=== PATIENT | male | born 1965 | race African-American/Black ===

== ENCOUNTER 2024-10-15 13:48 | Emergency (ER) | payer SELFPAY ==
[~2024-10-15] VITALS: Ht 185.4 cm; Wt 66.7 kg
[2024-10-15 14:33] LABS: BASO # 0.1 10*3/uL (0.0-0.1); BASO % 1.1 % (0.0-1.0); EOS # 0.5 10*3/uL (0.0-0.4); EOS % 8.8 % (1.0-4.0); MEAN CELL VOLUME 88.2 fl (80.0-94.0); MEAN CORPUSCULAR HGB 29.4 pg (27.0-31.0); MEAN PLATELET VOLUME 9.7 fl (9.6-12.3); MONO # 0.7 10*3/uL (0.1-1.0); MONO % 13.0 % (3.0-9.0); NEUT # 1.8 10*3/uL (2.3-7.9); NEUT % 31.2 % (47.0-73.0); NUCLEATED RED BLOOD CELL 0.0 % (0.0-0.0); NUCLEATED RED BLOOD CELL 0.0 10*3/uL (0.0-0.0); PLATELET COUNT AUTOMATED 254 10*3/uL (130-400); RED CELL DISTRI WIDTH 15.8 % (0-14.5)
[2024-10-15] MEDS ORDERED: IOHEXOL 300 MG/ML 100 ML VIAL IV ONE (14:35)
[2024-10-15 14:54] LABS: BUN 9 mg/dl (9-23); ETHYL ALCOHOL < 3.0 mg/dl (<3); SGPT/ALT 17 U/L (5-49)
[2024-10-15] MEDS ORDERED: SODIUM CHLORIDE 0.9% 1,000 ML IV ONE (15:00)
[2024-10-15] MEDS ORDERED: Ondansetron4 MG PO (16:22)
[2024-10-15] MEDS ORDERED: PROTONIX40 MG PO (16:22)
[2024-10-15] MEDS ORDERED: CARAFATE1 G1 PO (16:22)
== END 2024-10-15 16:32 | disposition home or self-care (01) ==
LOC: ED 13:48
PROVIDERS: Emergency Medicine
DX: K29.70 Gastritis, unspecified, without bleeding (principal); K92.1 Melena; Z88.1 Allergy status to other antibiotic agents